=== PATIENT | male | born 1970 | race Hispanic/Latino ===

== ENCOUNTER 2018-05-07 02:54 | Emergency (ER) | payer OTHER ==
[2018-05-07] MEDS ORDERED: ACETAMINOPHEN EXTRA STRENGTH 500 MG TABLET ONE (03:27)
== END 2018-05-07 03:48 | disposition home or self-care (01) ==
LOC: EDH 02:54
DX: H60.8X2 Other otitis externa, left ear (principal); Z72.0 Tobacco use

== ENCOUNTER 2021-08-29 17:15 | Emergency (ER) | payer MEDICAID, OTHER ==
[~2021-08-29] VITALS: Ht 162.6 cm; Wt 102.1 kg
[2021-08-29 17:20] VITALS: BP 115/70
[2021-08-29] MEDS ORDERED: ACET1TAB25 PO (17:56)
[2021-08-29] MEDS ORDERED: ACETAMINOPHEN WITH CODEINE 1 TAB TAB ONE (17:58)
[2021-08-29] MEDS ORDERED: ACETAMINOPHEN WITH CODEINE 1 TAB TAB PO ONE (18:00)
== END 2021-08-29 18:53 | disposition home or self-care (01) ==
LOC: EDH 17:15
DX: S49.91XA Unspecified injury of right shoulder and upper arm, initial encounter (principal); X58.XXXA Exposure to other specified factors, initial encounter; Y93.89 Activity, other specified; Y92.89 Other specified places as the place of occurrence of the external cause; Y99.8 Other external cause status
CPT/HCPCS: 73030

== ENCOUNTER 2023-06-22 22:03 | Emergency (ER) | payer MEDICAID, OTHER ==
[~2023-06-22] VITALS: Ht 167.6 cm; Wt 95.3 kg
[~2023-06-22 22:03] MED LIST: ACET-2079 PO
[2023-06-22 22:23] VITALS: BP 145/62; PULSE 78; RESP 14; O2SAT 97
[2023-06-22] MEDS ORDERED: AMOX500C2 PO (22:25)
[2023-06-22] MEDS ORDERED: IBUP-1493 PO (22:25)
== END 2023-06-22 22:32 | disposition home or self-care (01) ==
LOC: EDH 22:03
DX: K08.89 Other specified disorders of teeth and supporting structures (principal)